=== PATIENT | male | born 1985 | race Two or more races ===

== ENCOUNTER 2024-10-10 11:57 | Outpatient (CLI) | payer MEDICARE, MEDICAID ==
[2024-10-10 12:49] LABS: INR 1.94 (0.9-1.15); Prothrombin Time 19.3 sec (9.3-11.8)
== END 2024-10-10 17:00 | disposition home or self-care (01) ==
LOC: LAB 11:57
PROVIDERS: ATTEND Physician Assistant
DX: D68.69 Other thrombophilia (principal); I38 Endocarditis, valve unspecified
CPT/HCPCS: 36415; 85610